=== PATIENT | male | born 1955 | race Caucasian/White ===

== ENCOUNTER → 2018-07-01 | Outpatient (CLI) | payer OTHER ==
[~2018-07-01] MED LIST: IOPAMIDOL (ISOVUE 370) 100 ML BTL IV ONE
== END ==
LOC: FIMAGING 15:49
PROVIDERS: ATTEND Thoracic Surgery (Cardiothoracic Vascular Surgery)
DX: I71.2 Thoracic aortic aneurysm, without rupture (principal); I25.10 Atherosclerotic heart disease of native coronary artery without angina pectoris; J90 Pleural effusion, not elsewhere classified
CPT/HCPCS: Q9967